=== PATIENT | female | born 1995 | race Caucasian/White ===

== ENCOUNTER 2017-10-25 22:19 | Emergency (ER) | payer MEDICAID ==
--- NOTE | 2017-10-25 22:37 | Emergency Department Record ---
History of Present Illness - General Chief Complaint: Headache Migraine Stated Complaint: BARKLEY Time Seen by Provider: 10/25/17 22:30 Source: Patient Mode of Arrival: Ambulatory Limitations: No limitations - History of Present Illness Initial Comments: The patient is here due to a 3 day hx of a R sided BARKLEY. The onset was gradual and mild initially but then it did get slowly worse today. The pain is a sharp aching pain around the R congregation and ear and face. She denies any visual changes , numbness, tingling, nausea, neck pain, or balance issues. The patient does have a hx of similar BARKLEY's but this one has been worse than those but similar in character. The patient also denies any fever, chills, or trauma. The patient states she just got her insurance re-instated so she felt she would get the pain checked out tonight. Complaint: Headache Onset/Timin -: Days(s) Location: Facial, Right, Temporal Severity: Moderate Severity scale (1-10): 8 Quality: Aching, Sharp Treatments Prior to Arrival: None - Related Data Previous Rx's Medication Instructions Recorded Naproxen [Naprosyn] 500 mg PO BID #14 tablet. 10/25/17 Allergies Allergy/AdvReac Type Severity Reaction Status Date / Time No Known Drug Allergies Allergy Unverified 08/18/15 18:14 Travel Screening - Travel/Exposure Within Last 30 Days Have you traveled within the last 30 days?: No Review of Systems Constitutional: Denies: Chills, Fever Eyes: Denies: Eye discharge ENT: Denies: Congestion Respiratory: Denies: Cough, Dyspnea Past Medical History - SOCIAL HISTORY Smoking Status: Light tobacco smoker (<10/day) Alcohol Use: None Drug Use: None - RESPIRATORY Hx Respiratory Disorders: No - CARDIOVASCULAR Hx Cardio Disorders: No - NEURO Hx Neuro Disorders: No - GI Hx GI Disorders: No - Hx Genitourinary Disorders: No - ENDOCRINE Hx Endocrine Disorders: No Hx Diabetes: No Hx Thyroid Disease: No - MUSCULOSKELETAL Hx Musculoskeletal Disorders: No - PSYCH Hx Psych Problems: No - HEMATOLOGY/ONCOLOGY Hx Hematology/Oncology Disorders: No Family Medical History Any Significant Family History?: Yes Hx Cancer: Grandparents Physical Exam - General General Appearance: Alert, Oriented x3, Cooperative, No acute distress (The patient is smiling and laughing in the room and appears VERY nontoxic.) - Head Head exam: Atraumatic, Normocephalic, Normal inspection - Eye Eye exam: Normal appearance, PERRL, EOMI - ENT ENT exam: Mucous membranes moist, Normal external ear exam, Normal orophraynx, TM's normal bilaterally. negative: Normal exam Ear exam: Normal external inspection Mouth exam: Normal external inspection, Other (Palpation of the R TMJ area does reproduce the pain. ). negative: Trismus Teeth exam: Normal inspection. negative: Dental tenderness # Throat exam: Normal inspection. negative: Tonsillar erythema, Tonsillar exudate - Neck Neck exam: Normal inspection, Full ROM, Tenderness (Palpation of the R posterior cervical muscles does also reproduce the pain. ). negative: Lymphadenopathy, Meningismus - Respiratory Respiratory exam: Normal lung sounds bilaterally. negative: Respiratory distress - Cardiovascular Cardiovascular Exam: Regular rate, Normal rhythm, Normal heart sounds - GI/Abdominal GI/Abdominal exam: Soft, Normal bowel sounds. negative: Tenderness - Extremities Extremities exam: Normal inspection, Full ROM, Normal capillary refill. negative: Tenderness - Neurological Neurological exam: Alert, Normal gait, Oriented X3, Other (Neg Drift and Rhomberg.). negative: Abnormal gait, Altered, Motor sensory deficit - Skin Skin exam: negative: Rash Course Vital Signs 10/25/17 22:29 Temperature 98.4 F Pulse Rate [ 68 Pulse Ox Probe] Respiratory 20 Rate Blood Pressure 128/78 [Left Arm] Pulse Ox 98 - Reevaluation(s) Reevaluation #1: The patient is feeling a little better and again appears VERY comfortable and stable. On exam the pain is still very reproducible with palpation over the R TMJ area. She is to take the naprosyn for pain and see her PCP next week for recheck. 10/25/17 23:15 Disposition Disposition: Discharge Clinical Impression: TMJ (temporomandibular joint disorder) Disposition: Home, Self-Care Condition: (2) Stable Instructions: Temporomandibular Disorder (ED) Additional Instructions: Please take the Naprosyn for pain and please see your family doctor for recheck this week. Please return to the ER for any worsening pain, fever, visual changes , balance issues or fever. Prescriptions: Naproxen [Naprosyn] 500 mg PO BID #14 tablet.dr Forms: Patient Portal Access Time of Disposition: 23:17 Quality - Quality Measures Quality Measures: N/A - Blood Pressure Screening View Details: Yes Does Patient Have Any of the Following: No Blood Pressure Classification: Pre-Hypertensive BP Reading Systolic Measurement: 128 Diastolic Measurement: 78 Screening for High Blood Pressure: < Pre-Hypertensive BP, F/U Documented > [ [id number]] Pre-Hypertensive Follow-up Interventions: Referral to alternative/primary care provider.
[2017-10-25] MEDS ORDERED: KETOROLAC 30 MG/ML VIAL IM ONE (22:40)
[2017-10-25 23:01] LABS: URINE APPEARANCE CLEAR; URINE BILIRUBIN NEGATIVE (NEGATIVE); URINE BLOOD NEGATIVE (NEGATIVE); URINE COLOR YELLOW; URINE GLUCOSE (UA) NEGATIVE (NEGATIVE); URINE KETONE NEGATIVE (NEGATIVE); URINE LEUKOCYTE ESTERASE NEGATIVE (NEGATIVE); URINE NITRITE NEGATIVE (NEGATIVE); URINE PROTEIN NEGATIVE (NEGATIVE); URINE UROBILINOGEN 0.2 E.U./dL (0.20 - 1.00)
[2017-10-25 23:04] LABS: HCG,QUALITATIVE URINE NEGATIVE (NEGATIVE)
== END 2017-10-25 23:31 | disposition home or self-care (01) ==
LOC: ER 22:19
DX: M26.601 Right temporomandibular joint disorder, unspecified (principal); R51 Headache; F17.210 Nicotine dependence, cigarettes, uncomplicated
CPT/HCPCS: 99283 ×2; 96372; 81003; 81025; J1885